=== PATIENT | male | born 2000 | race Caucasian/White ===

== ENCOUNTER → 2020-08-07 11:56 | Outpatient (BNVA) | payer BC, SELFPAY | PROVIDERS: Visit Provider Specialist | DX: G56.03 Carpal tunnel syndrome, bilateral upper limbs (principal); R20.0 Anesthesia of skin; R20.2 Paresthesia of skin; F17.290 Nicotine dependence, other tobacco product, uncomplicated | CPT/HCPCS: 95910 ==